=== PATIENT | female | born 1975 | race Caucasian/White ===

== ENCOUNTER → 2017-02-02 | Outpatient (CLI) | payer BC | LOC: MC.RAD 08:40 | DX: Z12.31 Encounter for screening mammogram for malignant neoplasm of breast (principal) ==

== ENCOUNTER → 2018-05-19 | Outpatient (CLI) | payer BC | LOC: MC.RAD 10:20 | DX: Z12.31 Encounter for screening mammogram for malignant neoplasm of breast (principal) ==

== ENCOUNTER → 2020-01-25 | Outpatient (CLI) | payer BC | LOC: MC.RAD 12:58 | DX: Z12.31 Encounter for screening mammogram for malignant neoplasm of breast (principal); N64.89 Other specified disorders of breast ==

== ENCOUNTER → 2020-02-01 | Outpatient (CLI) | payer BC | LOC: MC.RAD 10:54 | DX: R92.8 Other abnormal and inconclusive findings on diagnostic imaging of breast (principal) ==

== ENCOUNTER → 2020-02-06 | Outpatient (CLI) | payer BC | LOC: MC.RAD 09:49 | DX: N63.20 Unspecified lump in the left breast, unspecified quadrant (principal); Z98.82 Breast implant status ==

== ENCOUNTER 2020-03-05 06:56 | Day surgery (SDC) | payer BC ==
[~2020-03-05] VITALS: Ht 172.7 cm; Wt 89.8 kg
[2020-03-05] MEDS ORDERED: NAPROSYN500 MG PO (08:52)
[2020-03-05] MEDS ORDERED: LEXAPRO20 MG PO (08:52)
[2020-03-05 08:53] VITALS: BP 108/70; PULSE 77; TEMP 99.2
[2020-03-05] MEDS ORDERED: ALLEGRA 60MG TA60 MG PO (08:53)
[2020-03-05] MEDS ORDERED: PERCOCET 325 MG1 TA2 PO (14:53)
[2020-03-05] MEDS ORDERED: MOTRIN 600600 MG/TAB PO (14:53)
[2020-03-05 15:25] VITALS: BP 115/75; PULSE 77
--- NOTE | 2020-03-05 15:25 | NUR ---
Returns to room 1 per cart and is awake and alert. Temp 98.3. Room air sats 92%. Moran set dressing dry on the left lower breast incision and left axilla sites. IV fluids infusing and site is clear. Siderails up x2 and call lgt in reach. Sipping on water.
[2020-03-05 15:40] VITALS: BP 110/74; PULSE 69
--- NOTE | 2020-03-05 15:40 | NUR ---
Continues to rest and is sipping on water.
[2020-03-05 15:55] VITALS: BP 108/71; PULSE 73
--- NOTE | 2020-03-05 15:55 | NUR ---
Eating toast and denies need for pain medications and denies nausea. Room air sats 96%.
[2020-03-05 16:04] VITALS: TEMP 98.3
[2020-03-05 16:10] VITALS: BP 117/78; PULSE 81
--- NOTE | 2020-03-05 16:10 | NUR ---
Resting and denies pain or nausea. Tolerated toast.
--- NOTE | 2020-03-05 16:15 | NUR ---
Dresses self. IV to INT.
--- NOTE | 2020-03-05 16:36 | NUR ---
Dismissal instructions given and voices understanding of these. Provided scripts for Percocet and Motrin.
--- NOTE | 2020-03-05 16:43 | NUR ---
Patient dismissed to home driven by friend. Taken to the front door per wheelchair and assisted into vehicle with instructions in hand.
== END 2020-03-05 16:43 | disposition home or self-care (01) ==
LOC: SDCO 06:56
DX: C50.912 Malignant neoplasm of unspecified site of left female breast (principal); Z20.828 Contact with and (suspected) exposure to other viral communicable diseases; G43.909 Migraine, unspecified, not intractable, without status migrainosus; F41.9 Anxiety disorder, unspecified; B35.6 Tinea cruris; F17.210 Nicotine dependence, cigarettes, uncomplicated; Z17.0 Estrogen receptor positive status [ER+]; Z88.1 Allergy status to other antibiotic agents; Z86.14 Personal history of Methicillin resistant Staphylococcus aureus infection; Z88.2 Allergy status to sulfonamides; Z79.899 Other long term (current) drug therapy
CPT/HCPCS: A9541; J0690; J1100; J1170; J2250; J2405; J2704; J2795; J3010; J7120

== ENCOUNTER → 2021-01-29 | Outpatient (CLI) | payer BC ==
[~2021-01-29] MED LIST: ALLEGRA 60MG TA60 MG PO; LEXAPRO20 MG PO; MOTRIN 600600 MG/TAB PO; NAPROSYN500 MG PO; PERCOCET 325 MG1 TA2 PO
== END ==
LOC: MC.RAD 08:10
DX: C50.412 Malignant neoplasm of upper-outer quadrant of left female breast (principal); Z98.890 Other specified postprocedural states

== ENCOUNTER → 2022-01-30 | Outpatient (CLI) | payer BC | LOC: MC.RAD 08:37 | DX: Z12.31 Encounter for screening mammogram for malignant neoplasm of breast (principal) ==

== ENCOUNTER 2023-04-21 06:26 | Day surgery (SDC) | payer BC ==
[~2023-04-21] VITALS: Ht 172.7 cm; Wt 85.5 kg
[2023-04-21 07:04] VITALS: BP 115/83; PULSE 83; TEMP 98.7
[2023-04-21] MEDS ORDERED: XANAX 0.5MG0.5 MG PO (07:08)
[2023-04-21] MEDS ORDERED: FASTIN30 MG PO (07:09)
[2023-04-21] MEDS ORDERED: DIFLUCAN150 MG PO (07:09)
[2023-04-21] MEDS ORDERED: TAMOXIFEN CITRA20 MG PO (07:10)
[2023-04-21 08:30] VITALS: BP 113/83; PULSE 87; TEMP 97.6
--- NOTE | 2023-04-21 08:30 | NUR ---
The patient arrived back to [place] 1 from the endoscopy suite at this time. The patient ambulated from the cart to the recliner in her room with the stand by assistance of two nurses and appeared to tolerate the activity well. Vital signs were started at this time. The patient agrees to try a muffin and orange juice. Call light is within reach. Friend brought back to be at her bedside. Warm blanket provided. The patient denies any further needs at this time.
[2023-04-21 08:45] VITALS: BP 108/72; PULSE 80
--- NOTE | 2023-04-21 08:45 | NUR ---
The patient has finished her food and drink and denies wanting anything further at this time. Vital signs appear stable. Her friend remains at her bedside.
[2023-04-21 09:00] VITALS: BP 114/81; PULSE 79
--- NOTE | 2023-04-21 09:00 | NUR ---
Dr. Loaiza has been in to speak with the patient and her friend regarding the findings of the procedure. Discharge instructions were reviwed and they both verbalized understanding. The patien's IV to her right wrist was removed and a pressure dressing was applied to the site. The nurse instructed the patient to get dressed and notify the staff when she is ready to be escorted out.
--- NOTE | 2023-04-21 09:10 | NUR ---
The patient was escorted out via wheelchair to a private vehicle by HASEEB Alves. The patient's belongings and discharge paperwork were sent with her. The patient's friend is present to drive her home.
== END 2023-04-21 09:10 ==
LOC: SDCO 06:26
DX: Z12.11 Encounter for screening for malignant neoplasm of colon (principal)
CPT/HCPCS: J2704; J7120